=== PATIENT | female | born 1945 | race Caucasian/White ===

== ENCOUNTER 2020-09-27 10:05 | Emergency (ER) | payer BC, MEDICARE ==
[~2020-09-27] VITALS: Ht 152.4 cm; Wt 59.0 kg
[~2020-09-27 10:05] MED LIST: AMLODIPINE BESY10 MG PO; ATENOLOL50 MG PO; LISINOPRIL10 MG PO; SOTALOL80 MG PO; XANAX0.5 MG
[2020-09-27] MEDS ORDERED: MORPHINE SULFATE INJ 2 MG/ML SYR IV STA (10:20)
[2020-09-27] MEDS ORDERED: ONDANSETRON HCL INJ 2MG/ML 2ML 2 MG/ML VIAL IV STA (10:20)
[2020-09-27] MEDS ORDERED: MORPHINE SULFATE INJ 4 MG/ML INJ 1ML ONE (10:40)
[2020-09-27 11:02] LABS: BASOPHILS % 0.3 % (0.0-1.0); EOSINOPHILS % 0.1 % (0.0-6.0); HEMATOCRIT 39.1 % (34.2-44.1); HEMOGLOBIN 13.1 g/dL (12.0-16.0); LYMPHOCYTES # (AUTO) 1.1 (1.0-3.2); LYMPHOCYTES % 11.2 % (18.0-39.1); MEAN CORPUSCULAR HEMOGLOBIN 31.2 pg (28-32); MEAN CORPUSCULAR HGB CONC 33.5 g/dL (31-35); MEAN CORPUSCULAR VOLUME 93.1 fL (81-99); MONOCYTES # (AUTO) 0.3 (0.2-0.8); MONOCYTES % 3.4 % (4.4-11.3); NEUTROPHILS # (AUTO) 8.5 (2.1-6.9); NEUTROPHILS % 84.7 % (38.7-80.0); PLATELET COUNT 225 x10e3/uL (140-360); RED CELL DISTRIBUTION WIDTH 12.3 % (11.7-14.4)
[2020-09-27 11:25] LABS: INR 1.13; PARTIAL THROMBOPLASTIN TIME 30.9 seconds (23.8-35.5); PROTHROMBIN TIME 15.1 seconds (11.9-14.5)
[2020-09-27 11:33] LABS: ALBUMIN 4.2 g/dL (3.5-5.0); ALBUMIN/GLOBULIN RATIO 1.6 (0.8-2.0); ANION GAP 18.3 mmol/L (8-16); CALCIUM 8.6 mg/dL (8.4-10.2); CREATININE, SERUM 1.42 mg/dL (0.57-1.11); POTASSIUM 4.3 mmol/L (3.5-5.1)
[2020-09-27 11:42] LABS: CREATINE KINASE MB 1.1 ng/mL (0-5.0)
[2020-09-27 11:48] LABS: ERYTHROCYTE SEDIMENTATION RATE 7 mm/hr (0-20)
== END 2020-09-27 12:41 | disposition home or self-care (01) ==
LOC: ER 10:22
DX: M25.562 Pain in left knee (principal); M25.062 Hemarthrosis, left knee; I48.91 Unspecified atrial fibrillation; F41.9 Anxiety disorder, unspecified
CPT/HCPCS: 36415; 73562; 80053; 82550; 82553; 84484; 85025; 85610; 85651; 85730; 93971; 99283; J2270; J2405